=== PATIENT | female | born 1990 | race American Indian/Alaskan Native ===

== ENCOUNTER 2020-03-17 21:44 | Observation (INO) | payer OTHER ==
[~2020-03-17] VITALS: Ht 167.6 cm; Wt 92.3 kg
[~2020-03-17 21:44] MED LIST: AUGMENTIN 875-1 EACH PO; CALCIUM500 M1 PO; IBUPROFEN800 MG PO; NORCO 5-325 TA1 EACH PO
[2020-03-18] MEDS ORDERED: OMEPRAZOLE20 MG PO (00:36)
[2020-03-18] MEDS ORDERED: MOTRIN IB200 MG PO (16:05)
[2020-03-18] MEDS ORDERED: MAPAP500 M1 PO (16:05)
[2020-03-18] MEDS ORDERED: PERCOCET 7.5-31 EACH PO (16:05)
--- NOTE | 2020-03-20 08:40 | HP ---
[facility] [address], [place] [address] Signed ADMISSION DATE: 03/17/2020 REASON FOR ADMISSION: Right upper abdominal pain with distended gallbladder consistent with acute acalculous cholecystitis. HISTORY OF PRESENT ILLNESS: This 29-year-old woman is and has one child. She presented to the emergency room last night at approximately 10:00 p.m. and was evaluated by Dr. Ritchie with complaints of epigastric and right subcostal pain from the previous day. The pain was constant and felt like she had been punched. There was radiation of the pain directly into the back. She has never had such symptoms in the past. She has no known history of reflux disease. She was evaluated and found on CBC to have an elevated white count of 15.8 with Chem-profile, which is essentially normal and a normal lipase and negative beta hCG. Her liver enzymes were normal. The gallbladder ultrasound was obtained, which showed a dilated gallbladder, but no stones. There was equivocal thickening. The interpreting radiologist was Dr. Adams. She had a fatty liver noted as well. She does have family history of biliary disease in her grandmother, who required cholecystectomy. PAST MEDICAL HISTORY: Significant for appendectomy in the distant past. She does not smoke or use alcohol. She is . She has one child as noted. ALLERGIES: She has no known drug allergies. MEDICATIONS: She takes no medications currently. REVIEW OF SYSTEMS: She denies any shortness of breath or chest pain. The epigastric and subcostal pain have improved since admission given antibiotics pain medication and IV fluids. PHYSICAL EXAMINATION: GENERAL: A large and obese woman, who does not look systemically toxic. Mucous membranes are slightly moist. Trachea is midline. Chest shows normal respiratory excursion. She has no tachypnea. Electronically Signed By: JEFFY ROMAN MD 03/20/20 0840 PATIENT NAME: TEJAS PELAYO HISTORY AND PHYSICAL DATE OF : [birth year] REPORT #: [id number] PHYSICIAN: JEFFY ROMAN MD PCP: [facility] REPORT IS CONFIDENTIAL AND NOT TO BE RELEASED WITHOUT AUTHORIZATION [facility] [address], [place] [address] Signed HEART: Regular. ABDOMEN: Obese, but soft. Currently, there is minimal tenderness and there is no palpable mass. She has no ascites. EXTREMITIES: Show no clubbing, cyanosis, or edema. LABORATORY STUDIES: Show white count of 15.8, hematocrit 44.4, and platelets 445,000. Chem profile shows potassium of 3.5 and glucose of 130. Liver enzymes normal as described. Beta-hCG negative. Urinalysis is essentially normal. IMAGING DATA: I reviewed the imaging studies of the ultrasound in detail. It appears to be a somewhat dilated gallbladder and a somewhat thickened wall to my exam signs of gallstones proper. ASSESSMENT AND PLAN: I discussed with the patient, the pathophysiology of biliary disease. She likely has acute acalculous cholecystitis. Whether the gallstones were non-visualized or not present is uncertain, but the dilated gallbladder is telling. She has increased risk for biliary disease including her culture, family history, and has had at least one child. I discussed with her the pathophysiology of this problem, and recommendation of treatment to include cholecystectomy. Admittedly without a gallstone seen on the gallbladder ultrasound, the possibility of other competing the etiologies must be considered. I think it is unlikely this represents peptic disease. She does not have progressive symptoms or toxicity at this time. She is clinically stable. An option for a more confirmatory diagnosis would be a CCK HIDA test. I discussed this with her as well. I would personally feel comfortable proceeding with cholecystectomy based on her clinical findings and imaging studies we have, however, she is going to think about it further. If a CCK HIDA test is preferred for more confirmatory diagnosis that would need to be done tomorrow. On that basis, operation could be done later in the day after the test of course. I will review this with her. Additionally, if she wishes to avoid operation for the time being and await a CCK HIDA test, that is perfectly fine. I must admit that if the CCK HIDA test is not abnormal and she has no reproduction of her symptoms or other similar findings, then consideration might be made for upper endoscopy to assess for peptic disease. Discussed the risks of operation with her including, but not limited to bleeding, infection, bile duct injury, need for open procedure and most importantly failure of diagnosis or failure to cure her symptoms. She understands this as well. Electronically Signed By: JEFFY ROMAN MD 03/20/20 0840 PATIENT NAME: TEJAS PELAYO HISTORY AND PHYSICAL DATE OF : [birth year] REPORT #: [id number] PHYSICIAN: JEFFY ROMAN MD PCP: [facility] REPORT IS CONFIDENTIAL AND NOT TO BE RELEASED WITHOUT AUTHORIZATION [address] [address] Signed Jeffy Roman MD JM/MODL /[id number] cc: Alexandria Ritchie MD [facility] Copies: ALEXANDRIA RITCHIE MD [facility] ~ Electronically Signed By: JEFFY ROMAN MD 03/20/20 0840 PATIENT NAME: TEJAS PELAYO HISTORY AND PHYSICAL DATE OF : [birth year] REPORT #: [id number] PHYSICIAN: JEFFY ROMAN MD PCP: [facility] REPORT IS CONFIDENTIAL AND NOT TO BE RELEASED WITHOUT AUTHORIZATION
--- NOTE | 2020-03-20 08:40 | OR ---
[facility] [address], [place] [address] Signed DATE OF OPERATION: 03/18/2020 SURGEON: Jeffy Roman MD PREOPERATIVE DIAGNOSIS: Acute acalculous cholecystitis. POSTOPERATIVE DIAGNOSIS: Acute acalculous cholecystitis. PROCEDURES: Laparoscopic cholecystectomy with intraoperative cholangiogram. ANESTHESIA: General endotracheal. ANESTHESIOLOGIST: Jeffy Jane C.R.N.A. INDICATIONS: This obese 29-year-old [place] woman, who has had one child and has family history of cholecystectomy in at least one grandparent. She presented to the emergency room, was evaluated by Dr. Ritchie with severe epigastric and right subcostal pain radiating to the right subscapular area. Her white count was elevated to 15.8. Her liver enzymes and amylase and lipase were normal. Her beta-hCG is negative and urinalysis is normal. Gallbladder ultrasound was performed, it showed a distended gallbladder and a mildly prominent common bile duct without visible stones or sludge. Fatty liver was noted as well. She was admitted, given intravenous fluids, IV antibiotics, parenteral pain medications, and further evaluation undertaken. Her symptoms have improved though she still has pain under the right subcostal area. She clinically has high probability of acute acalculous cholecystitis. I have discussed with her a plan for consideration of cholecystectomy versus waiting until tomorrow for which a nuclear medicine test could be undertaken. She is given a lot of consideration and has decided to proceed with recommended cholecystectomy. A laparoscopic approach was anticipated, though an open procedure may be necessary. The risks of bleeding, infection, bile duct injury, need for open procedure, failure to cure her symptoms, missed diagnosis, and other unforeseen complications were all reviewed in detail. She Electronically Signed By: JEFFY ROMAN MD 03/20/20 0840 PATIENT NAME: TEJAS PELAYO OPERATIVE REPORT DATE OF : [birth year] REPORT #: [id number] PHYSICIAN: JEFFY ROMAN MD PCP: [facility] REPORT IS CONFIDENTIAL AND NOT TO BE RELEASED WITHOUT AUTHORIZATION [facility] [address], [place] [address] Signed understands and wished to proceed. FINDINGS: Indeed the gallbladder was distended and inflamed and edematous. Dissection showed the wall to be quite edematous indeed. The gallbladder once excised showed chronic inflammatory change of the mucosa. There was no sign of stones or neoplasm. Cholangiogram was normal. The liver had mild fatty infiltration. DESCRIPTION OF PROCEDURE: The patient was brought to the operating room, given a general endotracheal anesthetic. Preoperative antibiotic Ancef had been given. Sequential compression device stockings used. Heparin subcutaneously administered. After satisfactory general endotracheal anesthesia, the abdomen was prepared with a chlorhexidine solution and draped sterilely. An infraumbilical incision was made using an open Cintia cannula technique. Pneumoperitoneum was achieved to a level of 14 mmHg of carbon dioxide gas. Intraabdominal inspection showed no sign of ascites or carcinomatosis. The liver had fatty infiltration. The gallbladder was obscured from view due to omentum. Three additional trocars were placed in usual configuration in the subxiphoid, right midclavicular, and right anterior axillary line. The gallbladder was elevated cephalad and noted to be edematous with some omental adhesion to the undersurface, these were taken down with blunt electrocautery dissection. This allowed for better elevation of the gallbladder. Using blunt and electrocautery dissection, the triangle of Calot was dissected free, ultimately identifying well the cystic artery and cystic duct. The cystic artery was doubly clipped and a clip applied across gallbladder cystic duct junction. A transverse choledochotomy was made in the cystic duct and egress of clear bile was noted. Using the Lima type cholangiocatheter, intraoperative cholangiography was undertaken, showing free flow of contrast in the biliary tree with prompt emptying into the duodenum. There was no sign of filling defect or obvious biliary anomaly. The catheter was removed, the cystic duct was triply clipped and divided, and the gallbladder dissected free in a retrograde fashion using electrocautery. The gallbladder was extracted through the infraumbilical port site without problem, opened on the back table and found to have chronic inflammatory changes and subacute inflammation of the mucosa. There was no sign of neoplasm. A granular mucosa was noted. Reinspection of subhepatic space showed no sign of bile leak bleeding or other problems. Excess irrigation fluid was suctioned free. The trocars were then removed under direct visualization, showing no sign of bleeding. The infraumbilical fascial incision reapproximated with interrupted 2-0 Vicryl suture. All wounds were copiously irrigated with saline solution. Skin closed with interrupted 3-0 Vicryl. Steri-Strips were applied. The patient was ultimately extubated and transferred to the recovery room in good condition, having suffered no complications. Sponge, needle, and instrument counts reported as correct x3. Electronically Signed By: JEFFY ROMAN MD 03/20/20 0840 PATIENT NAME: TEJAS PELAYO OPERATIVE REPORT DATE OF : [birth year] REPORT #: [id number] PHYSICIAN: JEFFY ROMAN MD PCP: [facility] REPORT IS CONFIDENTIAL AND NOT TO BE RELEASED WITHOUT AUTHORIZATION [facility] [address] [place], [place] [address] Signed MD RONNI De Santiago/RAYSHAWN /[id number] cc: [facility] Antonio Ritchie MD Copies: [facility] ANTONIO RITCHIE MD ~ Electronically Signed By: JEFFY ROMAN MD 03/20/20 0840 PATIENT NAME: TEJAS PELAYO OPERATIVE REPORT DATE OF : [birth year] REPORT #: [id number] PHYSICIAN: JEFFY ROMAN MD PCP: [facility] REPORT IS CONFIDENTIAL AND NOT TO BE RELEASED WITHOUT AUTHORIZATION
== END 2020-03-19 11:00 | disposition home or self-care (01) ==
LOC: ED 21:44 → MS 21:47
PROVIDERS: ADMIT Surgery
PROC: BF13YZZ Fluoroscopy of Gallbladder and Bile Ducts using Other Contrast (ICD-10-PCS; 2020-03-18)
PROC: 0FT44ZZ Resection of Gallbladder, Percutaneous Endoscopic Approach (ICD-10-PCS; principal; 2020-03-18 14:26)
DX: K81.2 Acute cholecystitis with chronic cholecystitis (principal); D72.829 Elevated white blood cell count, unspecified; E66.9 Obesity, unspecified; Z68.32 Body mass index [BMI] 32.0-32.9, adult
CPT/HCPCS: 00790; 74300; 76705; 80053; 81001; 83690; 84703; 85025; 96361; 96372; 96374; 96375; 96376; 99285-25; A9270; C9113; G0378; J0690; J1100; J1170; J1200; J1644; J1885; J2250; J2405; J2550; J2704; J2765; J3010; J7030; J7121; Q9967

== ENCOUNTER 2023-09-06 00:22 | Emergency (ER) | payer OTHER ==
[~2023-09-06] VITALS: Ht 167.6 cm; Wt 92.3 kg
[~2023-09-06 00:22] MED LIST changes: +MAPAP500 M1 PO; +MOTRIN IB200 MG PO; +OMEPRAZOLE20 MG PO; +PERCOCET 7.5-31 EACH PO
[2023-09-06 00:39] LABS: HEMOGLOBIN 15.1 g/dL (12.0-18.0); MCH 30.1 (27-36); PLATELET COUNT 402 K/uL (140-440); RDW 13.3 (10.5-15.0)
[2023-09-06 00:43] LABS: BASOPHILS 0.4 % (0-2); HEMATOCRIT 44.8 % (35.0-50.0); LYMPHOCYTES 14.2 % (24-44); MCHC 33.7 g/dl (30-36); MCV 89.4 fl (81-99); MONOCYTES 4.5 % (0-12); NEUTROPHILS 79.9 % (39-80); RBC 5.01 M/ul (4.3-5.7)
[2023-09-06 00:53] LABS: BILIRUBIN, URINE NEGATIVE (negative); BLOOD/HGB, URINE TRACE-I (Negative); KETONE, URINE >=80 (Negative); LEUK ESTERASE, URINE TRACE (negative); NITRITE, URINE NEGATIVE (negative); PH, URINE 7.5 (5-7)
[2023-09-06 00:55] LABS: RED BLOOD CELLS, URINE 21-40 /hpf (0-5)
[2023-09-06 00:55] LABS: ALBUMIN 4.3 g/dL (3.4-5.0); ALBUMIN/GLOBULIN RATIO 0.9 (1.1-2.4); ANION GAP 20.5 (7-21); BUN/CREATININE RATIO 10.34 (6.0-28.6); CALCIUM 9.4 mg/dL (8.5-10.1); CREATININE, SERUM 0.87 mg/dL (0.55-1.02); POTASSIUM 4.5 mmol/L (3.5-5.1); PROTEIN, TOTAL 9.1 g/dL (6.4-8.2)
[2023-09-06 00:56] LABS: BACTERIA, URINE 2+ /hpf (negative); EPITHELIAL CELLS, URINE SQUAMOUS 3+ /lpf (0-1+); REFLEX CULTURE, URINE No (No)
[2023-09-06] MEDS ORDERED: ONDANSETRON ODT8 MG PO (03:41)
[2023-09-06] MEDS ORDERED: HYDROCODON-ACE1 EA10 PO (03:41)
[2023-09-06] MEDS ORDERED: LEVOFLOXACIN500 MG PO (03:41)
[2023-09-06 04:07] VITALS: BP 161/90
== END 2023-09-06 04:07 | disposition home or self-care (01) ==
LOC: ED 00:22
PROVIDERS: Emergency Medicine
DX: N12 Tubulo-interstitial nephritis, not specified as acute or chronic (principal); Z79.899 Other long term (current) drug therapy
CPT/HCPCS: 36415; 74176; 80053; 81001; 83690; 84703; 85025; A9270; J0696; J1170; J1790; J2405; J2765; J7030; J7121

== ENCOUNTER 2024-06-14 08:18 | Inpatient (IN) | payer BC, OTHER ==
[~2024-06-14] VITALS: Ht 167.6 cm; Wt 100.2 kg
[~2024-06-14 08:18] MED LIST changes: +CALCIUM CARBONATE 500 MG CHEW PO PRN; +HYDROCODON-ACE1 EA10 PO; +LACTATED RINGER'S 1,000 ML IV SCH; +LEVOFLOXACIN500 MG PO; +MAGNESIUM HYDROXIDE/AL HYDROX 30 ML CUP PO PRN; +ONDANSETRON ODT8 MG PO
[2024-06-14 09:45] LABS: HEMATOCRIT 37.5 % (35.0-50.0); HEMOGLOBIN 12.8 g/dL (12.0-18.0); MCH 29.1 (27-36); MCHC 34.2 g/dl (30-36); MCV 85.1 fl (81-99); RBC 4.41 M/ul (4.3-5.7); RDW 14.9 (10.5-15.0)
[2024-06-14] MEDS ORDERED: MAGNESIUM HYDROXIDE/AL HYDROX 30 ML CUP PO PRN ×2 (09:45→16:00)
[2024-06-14] MEDS ORDERED: OXYTOCIN/DEXTROSE 5% 20 UNITS/100 ML BAG IV SCH (09:45)
[2024-06-14] MEDS ORDERED: CALCIUM CARBONATE 500 MG CHEW PO PRN ×2 (09:45→16:00)
[2024-06-14 09:58] VITALS: BP 131/74
[2024-06-14 10:15] LABS: ABO O; RH POSITIVE
[2024-06-14 10:16] LABS: ANTIBODY SCREEN NEGATIVE
[2024-06-14 11:05] LABS: AMPHETAMINES, URINE NEGATIVE (NEGATIVE); BARBITURATES, URINE NEGATIVE (NEGATIVE); BENZODIAZEPINE, URINE NEGATIVE (NEGATIVE); BUPRENORPHINE, URINE NEGATIVE (NEGATIVE); CANNABINOID, URINE NEGATIVE (NEGATIVE); COCAINE, URINE NEGATIVE (NEGATIVE); ECSTASY, URINE NEGATIVE (NEGATIVE); FENTANYL, URINE NEGATIVE (NEGATIVE); METHADONE, URINE NEGATIVE (NEGATIVE); OPIATES, URINE NEGATIVE (NEGATIVE); OXYCODONE, URINE NEGATIVE (NEGATIVE); PHENCYCLIDINE, URINE NEGATIVE (NEGATIVE)
--- NOTE | 2024-06-14 12:10 | PR ---
[facility] [address] [place] [address] Signed Progress Notes IP Datetime Report Generated by CPN: 06/14/2024 12:10 PROGRESS NOTES: [id number] Impression: Reassuring Heart Rate Procedures: Sterile Vag Exam Plan: Continue Present Management VITAL SIGNS: [id number] Vital Signs: Reviewed; Within Normal Limits VS Notable Details: occ mild HTN EXAM: [id number] Dilatation: 4.5 Effacement: 80 Station: -2 Contractions: q 2 to 4 min MEMBRANES: [id number] Comments: Starting to feel the contractions and some change. Will ambulate and continue. FETUS A: [id number] FHR Baseline: 140 Variability: Moderate 6-25bpm Accelerations: 15X15 Decelerations: None FHR Category: Category I Presentation: Vertex Comments on Fetus A: no evidence of metabolic acidosis FETUS B: [id number] Signing Physician: Elva Sweet MD Copies: ~ *Electronically Signed* 06/14/24 1210 ELVA SWEET MD PATIENT NAME: TEJAS PELAYO PROGRESS NOTE DATE OF : [birth year] PHYSICIAN: ELVA SWEET MD RPT #: [id number] REPORT IS CONFIDENTIAL AND NOT TO BE RELEASED WITHOUT AUTHORIZATION
[2024-06-14] MEDS ORDERED: ROPIVACAINE 0.2% 200 ML BAG ONE (14:17)
[2024-06-14] MEDS ORDERED: ePHEDrine sulfate 5 MG/ML SYRINGE IV PRN (15:00)
[2024-06-14] MEDS ORDERED: LACTATED RINGER'S 500 ML IV PRN (15:00)
[2024-06-14] MEDS ORDERED: LACTATED RINGER'S 2,000 ML IV ONE (15:00)
[2024-06-14] MEDS ORDERED: ROPIVACAINE 0.2% 200 ML BAG EPIDURAL SCH (15:00)
[2024-06-14] MEDS ORDERED: LIDOCAINE 2% VISCOUS 6 ML SYR TOP ONE ×2 (16:00)
[2024-06-14] MEDS ORDERED: HYDROCORTISONE ACETATE 25 MG SUPP PR PRN (16:00)
[2024-06-14] MEDS ORDERED: BENZOCAINE 60 ML AEROSOL TOP PRN (16:00)
[2024-06-14] MEDS ORDERED: HYDROCODONE/ACETA 5/325 TAB PO PRN (16:00)
[2024-06-14] MEDS ORDERED: IBUPROFEN 600 MG TAB PO PRN (16:00)
[2024-06-14] MEDS ORDERED: ACETAMINOPHEN 325 MG TAB PO PRN (16:00)
[2024-06-14] MEDS ORDERED: MAGNESIUM HYDROXIDE 30 ML UDC PO PRN (16:00)
[2024-06-14] MEDS ORDERED: WITCH HAZEL/GLYCERIN 1 EA PAD TOP PRN (16:00)
[2024-06-14] MEDS ORDERED: OXYTOCIN/0.9 % SODIUM CHLORIDE 500 ML IV SCH (16:00)
[2024-06-14] MEDS ORDERED: SENNOSIDES/DOCUSATE 1 EA TAB PO SCH (21:00)
[2024-06-15 05:33] LABS: HEMATOCRIT 37.3 % (35.0-50.0); HEMOGLOBIN 12.5 g/dL (12.0-18.0); MCH 28.7 (27-36); MCHC 33.5 g/dl (30-36); MCV 85.5 fl (81-99); RBC 4.36 M/ul (4.3-5.7); RDW 15.2 (10.5-15.0)
--- NOTE | 2024-06-15 08:57 | PR ---
[facility] [address] [place] [address] Signed PP Progress Notes Datetime Report Generated by CPN: 06/15/2024 08:57 SUBJECTIVE: [id number] Pain: Within Normal Limits Vital Signs: [id number] Vital Signs: Reviewed; Within Normal Limits Cardiovascular: Not Done Respiratory: Not Done Abdomen/Uterus: Abnormal Lochia: Normal Vulva/Perineum: Not Done Breasts: Not Done CVA Tenderness: Not Done Extremities: Normal Incision: Not Applicable Progress: Normal Exam Comments: Fundus firm, NT @ U-2. H/H 12.5/37.3, WBC 13.4, plat 259k IMPRESSION/PLAN/PROCEDURES: [id number] Impression: Normal Progression Plan: Discharge Procedures: None Progress Notes: Doing well. She desires d/c later today. Signing Physician: Elva Sweet MD Copies: ~ *Electronically Signed* 06/15/24 0857 ELVA SWEET MD PATIENT NAME: TEJAS PELAYO PROGRESS NOTE DATE OF : [birth year] PHYSICIAN: ELVA SWEET MD RPT #: [id number] REPORT IS CONFIDENTIAL AND NOT TO BE RELEASED WITHOUT AUTHORIZATION
== END 2024-06-15 16:56 | disposition home or self-care (01) | DRG 807 ==
LOC: FBC 08:18
PROVIDERS: ADMIT Obstetrics & Gynecology; ATTEND Obstetrics & Gynecology
PROC: 10E0XZZ Delivery of Products of Conception, External Approach (ICD-10-PCS; principal; 2024-06-14)
PROC: 0KQM0ZZ Repair Perineum Muscle, Open Approach (ICD-10-PCS; 2024-06-14)
PROC: 3E0R3BZ Introduction of Anesthetic Agent into Spinal Canal, Percutaneous Approach (ICD-10-PCS; 2024-06-14)
PROC: 00HU33Z Insertion of Infusion Device into Spinal Canal, Percutaneous Approach (ICD-10-PCS; 2024-06-14)
PROC: 10907ZC Drainage of Amniotic Fluid, Therapeutic from Products of Conception, Via Natural or Artificial Opening (ICD-10-PCS; 2024-06-14)
DX: O76 Abnormality in fetal heart rate and rhythm complicating labor and delivery (principal); Z37.0 Single live birth; O70.1 Second degree perineal laceration during delivery; Z3A.39 39 weeks gestation of pregnancy; O66.0 Obstructed labor due to shoulder dystocia
CPT/HCPCS: 01960; 36415; 80307; 85027; 86850; 86900; 86901; A9270; J2590; J2795; J7121